=== PATIENT | male | born 1995 | race American Indian/Alaskan Native ===

== ENCOUNTER 2017-07-10 20:00 | Emergency (ER) | payer SELFPAY ==
[2017-07-10] MEDS ORDERED: ULTRAM PO ONE (23:45)
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
[2017-07-11 01:05] VITALS: BP 128/81
== END 2017-07-11 00:44 | disposition home or self-care (01) ==
LOC: ED 20:00
DX: S39.012A Strain of muscle, fascia and tendon of lower back, initial encounter (principal); F17.210 Nicotine dependence, cigarettes, uncomplicated; V49.50XA Passenger injured in collision with unspecified motor vehicles in traffic accident, initial encounter; Y93.89 Activity, other specified; Y92.89 Other specified places as the place of occurrence of the external cause; Y99.8 Other external cause status
CPT/HCPCS: 72100; 99283